=== PATIENT | female | born 1990 | race African-American/Black ===

== ENCOUNTER 2019-01-23 23:54 | Emergency (ER) | payer OTHER ==
[~2019-01-23] VITALS: Ht 147.3 cm; Wt 66.7 kg
[2019-01-24] VITALS: BP 131/90; TEMP 97.9
[2019-01-24 01:06] LABS: PLATELET COUNT 262 K/uL (152-353)
[2019-01-24 01:19] LABS: POTASSIUM 3.4 mmol/L (3.6-5.2)
== END 2019-01-24 02:22 | disposition home or self-care (01) ==
LOC: ED 23:54
PROVIDERS: Student in an Organized Health Care Education/Training Program
DX: R11.2 Nausea with vomiting, unspecified (principal); R10.30 Lower abdominal pain, unspecified
CPT/HCPCS: 80053; 81000; 81025; 83690; 83735; 85027; 87086; 87088; 96360; 96375; 99284; J2765